=== PATIENT | female | born 1975 | race Caucasian/White ===

== ENCOUNTER → 2016-06-22 | Outpatient (CLI) | payer BC ==
[~2016-06-22] MED LIST: ACET-1256 PO; DIAZ-165 PO; MTR600X PO; OXYC-643 PO; SERT-234 PO
== END | disposition home or self-care (01) ==
LOC: C.PAPS 13:38
PROVIDERS: ATTEND Obstetrics & Gynecology
DX: Z01.419 Encounter for gynecological examination (general) (routine) without abnormal findings (principal)

== ENCOUNTER 2018-01-15 20:12 | Emergency (ER) | payer OTHER ==
[~2018-01-15] VITALS: Ht 165.1 cm; Wt 73.6 kg
[~2018-01-15 20:12] MED LIST changes: +BUPR-83 PO; +IBUP-103 PO; -MTR600X PO; -OXYC-643 PO; -SERT-234 PO
[2018-01-15 20:30] VITALS: TEMP 36.8; Ht 165.1 cm; Wt 73.6 kg
[2018-01-15] MEDS ORDERED: VALA1TAB2 PO (21:20)
[2018-01-15] MEDS ORDERED: LIDO1CRE TOP (21:22)
--- NOTE | 2018-01-15 21:22 | EMERGENCY ROOM VISIT NOTE ---
History First contact with patient: 20:33 Chief Complaint: PELVIC PAIN Stated Complaint: PAIN IN VAGINAL AREA History of Present Illness The patient is a 43 year old female who presents to the Emergency Room with complaints of pain in her vaginal area. Patient reports that she is currently going through a divorce and found out that her cheated on her. She states that she has had painful bumps on the skin around her vagina for the past 2 days. She states they are more painful on one side. It hurts her to urinate and to touch the area. It also hurts to sit. She has noticed a slight odor to her discharge. Otherwise she denies any complaints including vaginal itching, increase or unusual discharge, fevers or urinary symptoms. She denies any history of STI's. She is not currently sexually active. She has had a previous hysterectomy for cervical cancer. Review of Systems A complete 10 point review of systems was reviewed with the patient with pertinent positives and negatives as per history of present illness. All else were negative. Past Medical/Surgical History Medical Problems: (1) No significant active problems Social History Smoking Status: Never Smoker Marital Status: Housing Status: lives with family Current/Historical Medications Scheduled Isknyuh-Pnfjtrrslpaxz-Eiqsgvpm (Excedrin Migraine), 2 TABS PO PRN Bupropion (Wellbutrin), 200 MG PO DAILY Valacyclovir Hcl (Valtrex), 1,000 MG PO BID Scheduled PRN Lidocaine Hcl (Lidocaine), 1 APPLN TOP TID PRN for Pain Lorazepam (Ativan), 0.5 MG PO DAILY PRN for Anxiety Physical Exam Vital Signs Date Time Temp Pulse Resp B/P (MAP) Pulse Ox O2 Delivery O2 Flow Rate FiO2 01/15/18 21:35 66 16 112/76 98 01/15/18 20:30 36.8 108 18 120/81 96 Room Air Physical Exam VITALS: Vitals are noted on the nurse's note and reviewed by myself. Vital signs stable. GENERAL: This is a 43-year-old female, very anxious appearing, well-developed well-nourished. PELVIC: There are several very tender ulcerations on erythematous base located on the left labia minora and majora. Pelvic exam reveals a small amount of whitish vaginal discharge. Patient has a vaginal cuff. NEURO: Patient was alert and oriented to person place and time. Medical Decision & Procedures Laboratory Results Test 01/15/18 21:00 Date/Time Source Procedure Growth Status 01/15/18 21:00 Vaginal Swab Trichomonas Preparation - Final Complete Medications Administered Medications (Trade) Dose Ordered Sig/Myrna Route Start Time Stop Time Status Last Admin Dose Admin Valacyclovir HCl (Valtrex Tab) 1,000 mg NOW ONCE PO 01/15/18 21:15 01/15/18 21:16 DC 01/15/18 21:21 1,000 MG Medical Decision Differential diagnosis includes HSV, gonorrhea, chlamydia, UTI, bacterial vaginosis, Bartholin's abscess, among others. The patient was evaluated as above. Pelvic exam was performed. Patient does have ulcerations to the labia minora very concerning for HSV. Viral culture was obtained and is pending. Pelvic cultures were obtained and are pending. Patient will be started on Valtrex. She was given lidocaine cream for symptomatic relief. She was advised to follow-up with her INSTITUTIONAL ASSET MANAGER. She verbalized understanding of my assessment and treatment plan and was discharged home in good condition. Medication Reconcilliation Current Medication List: was personally reviewed by me Blood Pressure Screening Patient's blood pressure: Normal blood pressure Impression Primary Impression: Herpes genitalis Departure Information Dispostion Home / Self-Care Condition GOOD Prescriptions Lidocaine Hcl (LIDOCAINE) 3 % Cre 1 APPLN TOP TID Y for Pain, #1 TUBE Prov: Denia Arias PA-C 01/15/18 Valacyclovir Hcl (VALTREX) 1 Gm Tab 1000 MG PO BID for 10 Days, #20 TAB Prov: Denia Arias PA-C 01/15/18 Referrals Jan Finney MD (PCP) Ion Falcon M.D. Patient Instructions My [facility] [address] Additional Instructions Your cultures were pending. Contact us if you do not hear from us about the results. Valtrex, twice daily as prescribed. Apply the lidocaine cream up to 3 times daily as needed for pain. For pain control, you can use the following wgiw-sso-hbtxkzr medicines (if >12 yo): - Regular strength (325mg/tab) Tylenol (acetaminophen) 2 tabs every 4-6 hours as needed. Do not exceed 12 tablets in a 24 hour period. Avoid taking more than 4 grams (4000 mg) of Tylenol per day. This includes any other sources of acetaminophen you may take on a regular basis. - Regular strength (200 mg/tab) Advil (ibuprofen) 1-2 tabs every 4-6 hours as needed. Do not exceed a dose of 3200 mg per day. Follow-up with INSTITUTIONAL ASSET MANAGER. Problem Qualifiers Primary Impression: Herpes genitalis Herpes simplex infection site: vulvovaginitis Qualified Codes: A60.04 - Herpesviral vulvovaginitis
[2018-01-15] MEDS ORDERED: LORA-741 PO (21:26)
[2018-01-15] MEDS ORDERED: ASPI-390 PO (21:26)
[2018-01-15 21:35] VITALS: BP 112/76; PULSE 66; O2SAT 98
--- NOTE | 2018-01-20 13:00 | Pharmacy Progress Note ---
ED Pharmacist Culture FollowUp Date of Service: Jan 20, 2018. Patients genital culture grew anirudh albicans. Discussed with physician over weekend who as to prescribe fluconazole 150 mg PO take 1 tab now #1 refill. Cannot find prescribing physician in notes or on culture follow-up note. Discussed with Dr. Bay who authorized Fluconazole 150 mg PO now and one in 3 days, disp #2, no refills. Called patient and discussed result from genital culture. Patient asked regarding herpes results. Herpes results are still pending. She asked if she would be getting a call regarding these results. If positive may get call, patient can call back for results if has not heard. Patient [place] leaving country on Saturday. Provided negative results for chlamydia/gonorrhea. Patient had no further questions.
== END 2018-01-15 21:36 | disposition home or self-care (01) ==
LOC: C.EDB 20:13 → C.EDC 21:36
DX: A60.09 Herpesviral infection of other urogenital tract (principal); Z90.710 Acquired absence of both cervix and uterus; Z85.41 Personal history of malignant neoplasm of cervix uteri; Z79.899 Other long term (current) drug therapy